=== PATIENT | female | born 1945 | race Caucasian/White ===

== ENCOUNTER → 2021-03-14 08:07 | Outpatient (CLI) | payer MEDICARE, OTHER, SELFPAY ==
[2020-12-20 14:09] VITALS: BMI 28.0
--- NOTE | 2021-03-14 08:10 | US_ITS ---
STUDY: ABDOMINAL ULTRASOUND - RIGHT UPPER QUADRANT REASON FOR VISIT: Female, 75 years old hemochromatosis TECHNIQUE: Ultrasound evaluation of the right upper quadrant was performed with real-time and static pope-scale imaging. TECHNICAL QUALITY: Adequate. COMPARISON: 11/18/2016 FINDINGS: Liver: The liver measures 18.0 cm. There is increased echogenicity. The bile ducts are within normal limits. There is hepatic color flow. The direction of portal flow is hepatopetal. There is no demonstrated mass lesion. Gallbladder: Normal distended gallbladder. The gallbladder wall measures 3 mm. There is a negative sonographic Contreras''s sign. There is no pericholecystic fluid. There are no gallstones. Common Bile Duct (C.B.D.): The common bile duct measures 3 mm. Pancreas: Normal size of the head, body and tail of the pancreas. There is normal echogenicity of the pancreas. There is no demonstrated pancreatic mass or cyst. No pancreatic ductal dilation. Right Kidney: Normal size of the right kidney. The right kidney measures 10.1 x 4.1 x 3.4 cm. Normal renal cortex. The right cortex measures 1.2 cm. There is no demonstrated renal mass or cyst. There is no right hydronephrosis. US/Abdomen Limited IMPRESSION: Homogeneously hyperechoic liver appears similar to 11/18/2016, and is compatible with given diagnosis of hemachromatosis. No acute abnormal finding. Electronically Signed: Porfirio Sharma MD at 23:08 EDT Tel , Service support ,
== END ==
PROVIDERS: PCP Family Medicine; Referring Provider Nurse Practitioner Family; Visit Provider Nurse Practitioner Family
DX: E83.119 Hemochromatosis, unspecified (principal)
CPT/HCPCS: 76705

== ENCOUNTER → 2022-05-07 | Outpatient (CLI) | payer MEDICARE, OTHER, SELFPAY ==
--- NOTE | 2022-05-07 09:04 | US_ITS ---
INDICATION: Related to her hemochromatosis. Annual screening. EXAMINATION: Ultrasound US Abdomen Limited (quadrant) TECHNIQUE: Dupree-scale and color Doppler imaging was performed of the right upper quadrant. COMPARISON: None. FINDINGS: LIVER: The kidney measures 17.4 cm There is normal echotexture. No focal hepatic lesion. No intrahepatic biliary ductal dilatation. There is no free fluid. GALLBLADDER AND BILIARY TREE: No shadowing gallstone, pericholecystic fluid or gallbladder wall thickening is demonstrated. The gallbladder wall measures 2.7 mm The proximal common bile duct measures 7.3, which is within normal limits for the patient''s age. No filling defects. SONOGRAPHIC LIANG''S SIGN: Negative. PANCREAS: No focal abnormality is demonstrated in the pancreas. No pancreatic ductal dilatation. RIGHT KIDNEY: Right kidney measures 11.4 cm in length. Normal cortical echogenicity. The renal cortex measures 1.5 cm. There is no hydronephrosis. No shadowing calculus. There is a 1.0 x 0.9 x 0.6 cm cortical cyst. VESSELS: Submitted longitudinal images of the intra-abdominal aorta demonstrate no gross abnormalities and are unremarkable. The IVC is patent. US/Abdomen Limited IMPRESSION: 1. Small right renal cyst not previously noted. 2. Otherwise normal right upper quadrant abdominal ultrasound. Electronically Signed: Herve Evangelista DO at 17:09 EDT Reading Location ID and State: [address] [place] [address] Tel [phone], Service support ,
== END | disposition home or self-care (01) ==
LOC: US 08:58
PROVIDERS: PCP Family Medicine; Referring Provider Nurse Practitioner Family; Visit Provider Nurse Practitioner Family
DX: E83.110 Hereditary hemochromatosis (principal)
CPT/HCPCS: 76705

== ENCOUNTER → 2023-11-27 | Outpatient (CLI) | payer MEDICARE, OTHER, SELFPAY ==
--- NOTE | 2023-11-27 08:59 | US_ITS ---
STUDY: ABDOMINAL ULTRASOUND - RIGHT UPPER QUADRANT; ELASTOGRAPHY REASON FOR VISIT: Female, 78 years old. Hemochromatosis. TECHNIQUE: Ultrasound evaluation of the right upper quadrant was performed with real-time and static pope-scale imaging. Point quantification shear wave elastography was performed ([employer]). TECHNICAL QUALITY: Adequate. COMPARISON: Comparison is made with prior study dated May 07, 2022. FINDINGS: Liver: The liver measures 16.9 cm. There is normal echogenicity of the liver. The bile ducts are within normal limits. There is hepatic color flow. The direction of portal flow is hepatopetal. There is no demonstrated mass lesion. Median liver stiffness measured 9.2 kPa. Gallbladder: Normal distended gallbladder. The gallbladder wall measures 1.9 mm. There is a negative sonographic Contreras''s sign. There is no pericholecystic fluid. There are no gallstones. Common Bile Duct (C.B.D.): The common bile duct measures 4.3 mm. Pancreas: There is normal echogenicity of the visualized pancreas. There is no demonstrated pancreatic mass or cyst. Right Kidney: Normal size of the right kidney. The right kidney measures 9.5 cm x 4 cm x 3.2 cm. Normal renal cortex. The right cortex measures 1.0 cm. There is a 9 mm x 7 mm x 6 mm cyst in the midpole. There is no right hydronephrosis. US/ABD Limited w/ Elastography IMPRESSION: 1. Liver stiffness measures 9.2 kPa compatible with F2-F3 (Mild to moderate liver fibrosis) Metavir score. Electronically Signed: Liborio George MD at 14:52 EDT ,
== END | disposition home or self-care (01) ==
LOC: US 08:50
PROVIDERS: PCP Family Medicine; Referring Provider Internal Medicine Medical Oncology; Visit Provider Internal Medicine Medical Oncology
DX: E83.110 Hereditary hemochromatosis (principal)
CPT/HCPCS: 76705; 76981

== ENCOUNTER → 2025-01-06 | Outpatient (CLI) | payer MEDICARE, OTHER, SELFPAY | END | disposition home or self-care (01) | LOC: US 07:25 | PROVIDERS: PCP Family Medicine; Referring Provider Nurse Practitioner Family; Visit Provider Nurse Practitioner Family | DX: E83.110 Hereditary hemochromatosis (principal) | CPT/HCPCS: 76705 ==